=== PATIENT | male | born 1960 ===

== ENCOUNTER 2018-04-27 09:25 | Emergency (ER) | payer OTHER ==
[~2018-04-27] VITALS: Ht 152.4 cm; Wt 104.3 kg
[2018-04-27] MEDS ORDERED: ALTACE10 MG (10:33)
== END 2018-04-27 14:09 | disposition home or self-care (01) ==
LOC: ER 09:25
DX: N20.1 Calculus of ureter (principal); K57.90 Diverticulosis of intestine, part unspecified, without perforation or abscess without bleeding